=== PATIENT | female | born 1935 | race Caucasian/White ===

== ENCOUNTER → 2016-12-12 | Outpatient (REF) | payer MEDICARE ==
[~2016-12-12] MED LIST: /PRAV20TA PO; ASPI81TA31 PO; AUGM500T34 PO; CELE10TA PO; FISH1000 PO; HCTZ PO; LOSARTAN PO; OYST500T PO; SENN8.6T7 PO; SLOWTAB PO; VITAMIN B COMPLE1 PO; VITAMIN D50000 UNT PO; XANA0.25 PO; XANA0.5T PO
[2016-12-12 17:10] LABS: ALBUMIN 3.6 GM/DL (3.2-5.2); ALBUMIN/GLOBULIN RATIO 1.06 (1.00-1.93); ALKALINE PHOSPHATASE 89 U/L (45-117); ALT/SGPT 23 U/L (12-78); ANION GAP 8 MEQ/L (8-16); AST/SGOT 12 U/L (15-37); BILIRUBIN,TOTAL 0.4 MG/DL (0.2-1.0); BLOOD UREA NITROGEN 13 MG/DL (7-18); CARBON DIOXIDE LEVEL 34 MEQ/L (21-32); CHLORIDE LEVEL 100 MEQ/L (98-107); CHOLESTEROL LEVEL 184 MG/DL (<200); CREATININE FOR GFR 0.77 MG/DL (0.55-1.02); GLOMERULAR FILTRATION RATE > 60.0 (>32); GLUCOSE, FASTING 92 MG/DL (83-110); POTASSIUM SERUM 3.3 MEQ/L (3.5-5.1); SODIUM LEVEL 142 MEQ/L (136-145); TRIGLYCERIDES LEVEL 223 MG/DL (<150)
== END ==
LOC: M SFHCPLAZ 13:59
PROVIDERS: ATTEND Nurse Practitioner Adult Health
DX: I10 Essential (primary) hypertension (principal); E78.00 Pure hypercholesterolemia, unspecified; E55.9 Vitamin D deficiency, unspecified

== ENCOUNTER → 2017-01-15 | Outpatient (CLI) | payer MEDICARE ==
--- NOTE | 2017-01-17 08:03 | RADONC ---
RADIATION ONCOLOGY FOLLOWUP NOTE DATE: 01/15/2017 CHART NUMBER: [id number] DIAGNOSIS: Right breast cancer. STAGE: I A, [id number] ECOG PERFORMANCE STATUS: 0 FOLLOWUP NOTE: Ms. 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 The patient presents today reporting that she is doing quite well with no complaints at this time related to her radiation therapy or disease. She has no breast or bone pain. REVIEW OF SYSTEMS: The patient's review of systems is noncontributory. Denies nausea, vomiting, fevers, chills, night sweats, diplopia, headaches, anxiety or depression, anorexia, weight loss, visual disturbances, chest pain, urinary or bowel difficulties, bone pain, or neurological problems. PHYSICAL EXAMINATION: The patient is a well-developed, well-nourished, 81-year-old female, in no acute distress. HEENT exam is normocephalic, atraumatic. Extraocular movements are intact. There is no palpable cervical, supraclavicular, infraclavicular, axillary, or inguinal lymphadenopathy present. Lungs are clear to auscultation and percussion. Heart has a regular rate and rhythm. Abdomen is benign with no hepatosplenomegaly, masses, or tenderness. Breast examination reveals no masses or discharge bilaterally. Skeletal examination reveals no tenderness to pressure or percussion of the bony skeleton. Extremities reveal no clubbing, cyanosis, or edema. Neurologic exam is grossly intact, as is the remainder of the physical examination. ASSESSMENT: The patient is clinically ALEXANDER at this time and will be seen by us again in 6 months for further followup. She will also continue to be followed by her other physicians as well. cc: MD Compa Lee Jr, MD Jann Dominguez MD
== END ==
LOC: M ONCR 13:21
PROVIDERS: ATTEND Radiology Radiation Oncology
DX: C50.511 Malignant neoplasm of lower-outer quadrant of right female breast (principal)

== ENCOUNTER 2017-03-01 17:27 | Emergency (ER) | payer MEDICARE ==
[~2017-03-01] VITALS: Ht 162.6 cm; Wt 97.1 kg
[2017-03-01 19:14] VITALS: BP 157/66
--- NOTE | 2017-03-02 08:16 | REP ---
LEFT FEMUR: 03/01/2017. Comparison: left hip 04/15/2011. Findings: Two views of the femur in conjunction with the hip series this same date show no fracture of the shaft of the femur. There are degenerative changes at the knee with narrowing of the patellofemoral joint. No abnormal soft-tissue calcification. Impression: 1. Left knee arthritis particularly at the patellofemoral joint but no visible fracture of the portion of femur included on this study. Signed by Yovani Virk MD 03/02/2017 08:47 A
--- NOTE | 2017-03-02 08:30 | REP ---
AP PELVIS AND LEFT HIP: 03/01/2017. Clinical history: Trauma. Findings: No prior pertinent study. The three view show pelvic ring intact. The SI joints, sacral ala and foramina were unremarkable. Iliac wings, acetabuli and ischia intact. Symphysis pubis normal. The hips were grossly symmetric and unremarkable. There are degenerative disc and facet changes in the lower lumbar spine with some scoliosis. The two dedicated views show no hip joint space narrowing. There is a tiny rim osteophyte in the femoral head and at the acetabular roof. No evidence of AVN, fracture or destructive lesion. No abnormal calcifications. Impression: 1. Minimal left hip degenerative change without fracture of left hip or pelvis. Signed by Yovani Virk MD 03/02/2017 08:49 A
== END 2017-03-01 19:17 | disposition home or self-care (01) ==
LOC: M ED 18:27
DX: S70.02XA Contusion of left hip, initial encounter (principal); W18.30XA Fall on same level, unspecified, initial encounter; Y92.018 Other place in single-family (private) house as the place of occurrence of the external cause; Y93.89 Activity, other specified; Y99.8 Other external cause status; I10 Essential (primary) hypertension; E78.00 Pure hypercholesterolemia, unspecified; F41.9 Anxiety disorder, unspecified; F33.9 Major depressive disorder, recurrent, unspecified; Z85.3 Personal history of malignant neoplasm of breast; Z79.899 Other long term (current) drug therapy; Z79.82 Long term (current) use of aspirin; Z87.891 Personal history of nicotine dependence

== ENCOUNTER → 2017-03-17 | Outpatient (CLI) | payer MEDICARE ==
--- NOTE | 2017-03-17 13:06 | REP ---
PARTIAL LEFT KNEE, TWO VIEWS: HISTORY: Pain. There is no acute fracture or dislocation. There is narrowing of the joint spaces. Osteophytes are present on the femur, tibia and patella. A small suprapatellar joint effusion is present. IMPRESSION: Degenerative change as described above. Signed by Calixto Grossman MD 03/17/2017 01:30 P
--- NOTE | 2017-03-17 13:07 | REP ---
LEFT FEMUR, FOUR VIEWS: HISTORY: Pain. There is no acute fracture or dislocation. There is narrowing of the hip and knee joint spaces. Osteophytes are present at the knee joint. IMPRESSION: Degenerative change as described above. Signed by Calixto Grossman MD 03/17/2017 01:30 P
--- NOTE | 2017-03-17 13:08 | REP ---
LEFT HIP, TWO VIEWS: There is no acute fracture or dislocation. There is narrowing of the joint space. There is sclerosis of the acetabulum. IMPRESSION: Degenerative change as described above. Signed by Calixto Grossman MD 03/17/2017 01:30 P
== END ==
LOC: M SMT 11:54
PROVIDERS: ATTEND Nurse Practitioner Adult Health
DX: M16.12 Unilateral primary osteoarthritis, left hip (principal); M17.12 Unilateral primary osteoarthritis, left knee; M25.462 Effusion, left knee

== ENCOUNTER → 2017-04-18 | Outpatient (CLI) | payer MEDICARE | LOC: M LAB 13:25 | PROVIDERS: ATTEND Psychiatry & Neurology Psychiatry | DX: Z79.899 Other long term (current) drug therapy (principal) ==

== ENCOUNTER 2017-04-22 11:39 | Outpatient (RCR) | payer MEDICARE | END 2017-04-23 | LOC: M PT 11:39 | PROVIDERS: ATTEND Orthopaedic Surgery | DX: Z51.89 Encounter for other specified aftercare (principal); M70.70 Other bursitis of hip, unspecified hip; M12.9 Arthropathy, unspecified | CPT/HCPCS: 97035; 97110; 97140; 97163; G8978; G8979 ==

== ENCOUNTER 2017-05-01 13:34 | Outpatient (RCR) | payer MEDICARE | END 2017-05-23 | disposition home or self-care (01) | LOC: M PT 13:34 | PROVIDERS: ATTEND Orthopaedic Surgery | DX: Z51.89 Encounter for other specified aftercare (principal); M17.10 Unilateral primary osteoarthritis, unspecified knee ==

== ENCOUNTER → 2017-06-12 | Outpatient (REF) | payer MEDICARE ==
[2017-06-12 18:08] LABS: VITAMIN B12 LEVEL 304 PG/ML (247-911)
[2017-06-12 18:20] LABS: ALBUMIN 3.9 GM/DL (3.2-5.2); ALKALINE PHOSPHATASE 87 U/L (45-117); ALT/SGPT 22 U/L (12-78); ANION GAP 8 MEQ/L (8-16); AST/SGOT 17 U/L (15-37); BILIRUBIN,TOTAL 0.5 MG/DL (0.2-1.0); BLOOD UREA NITROGEN 20 MG/DL (7-18); CALCIUM LEVEL 9.2 MG/DL (8.8-10.2); CARBON DIOXIDE LEVEL 32 MEQ/L (21-32); CHLORIDE LEVEL 96 MEQ/L (98-107); CREATININE FOR GFR 0.78 MG/DL (0.55-1.02); GLOMERULAR FILTRATION RATE > 60.0 (>32); GLUCOSE, FASTING 99 MG/DL (83-110); SODIUM LEVEL 136 MEQ/L (136-145); TOTAL PROTEIN 6.9 GM/DL (6.4-8.2)
== END ==
LOC: M SFHCPLAZ 13:50
PROVIDERS: ATTEND Nurse Practitioner Adult Health
DX: Z00.00 Encounter for general adult medical examination without abnormal findings (principal); E55.9 Vitamin D deficiency, unspecified

== ENCOUNTER → 2017-07-23 | Outpatient (CLI) | payer MEDICARE ==
--- NOTE | 2017-07-24 09:53 | RADONC ---
RADIATION ONCOLOGY FOLLOWUP NOTE DATE: 07/23/2017 CHART NUMBER: [id number] DIAGNOSIS: Right breast cancer STAGE: I A, [id number]. ECOG PERFORMANCE STATUS: 0. FOLLOWUP NOTE: Ms. 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 The patient presents today reporting that she is doing quite well with no complaints at this time related to her radiation therapy or disease. She has no breast or bone pain. REVIEW OF SYSTEMS: The patient's review of systems is noncontributory. Denies nausea, vomiting, fevers, chills, night sweats, diplopia, headaches, anxiety or depression, anorexia, weight loss, visual disturbances, chest pain, urinary or bowel difficulties, bone pain, or neurological problems. PHYSICAL EXAMINATION: The patient is a well-developed, well-nourished, 81-year-old female in no acute distress. HEENT exam is normocephalic, atraumatic. Extraocular movements are intact. There is no palpable cervical, supraclavicular, infraclavicular, axillary, or inguinal lymphadenopathy present. Lungs are clear to auscultation and percussion. Heart has a regular rate and rhythm. Abdomen is benign with no hepatosplenomegaly, masses, or tenderness. Breast examination reveals no masses or discharge bilaterally. Skeletal examination reveals no tenderness to pressure or percussion of the bony skeleton. Extremities reveal no clubbing, cyanosis, or edema. Neurologic exam is grossly intact, as is the remainder of the physical examination. ASSESSMENT: The patient is clinically ALEXANDER at this time and will be seen by me again in 1 year for further followup. She will also continue to be followed by her other physicians as well. cc: Serena Bernardo MD, JAH Guzman Jr, MD Frank Rhode, MD MTDD
== END ==
LOC: M ONCR 13:23
PROVIDERS: ATTEND Radiology Radiation Oncology
DX: C50.511 Malignant neoplasm of lower-outer quadrant of right female breast (principal)

== ENCOUNTER → 2018-03-11 | Outpatient (REF) | payer MEDICARE ==
[2018-03-11 16:00] LABS: ALBUMIN 3.7 GM/DL (3.2-5.2); ALBUMIN/GLOBULIN RATIO 1.09 (1.00-1.93); ALKALINE PHOSPHATASE 68 U/L (45-117); ALT/SGPT 17 U/L (12-78); ANION GAP 3 MEQ/L (8-16); AST/SGOT 13 U/L (7-37); BILIRUBIN,TOTAL 0.3 MG/DL (0.2-1.0); BLOOD UREA NITROGEN 18 MG/DL (7-18); CALCIUM LEVEL 8.6 MG/DL (8.8-10.2); CARBON DIOXIDE LEVEL 33 MEQ/L (21-32); CHLORIDE LEVEL 102 MEQ/L (98-107); CHOLESTEROL LEVEL 200 MG/DL (<200); CHOLESTEROL RISK RATIO 4.444 (<5); CREATININE FOR GFR 0.75 MG/DL (0.55-1.30); GLOMERULAR FILTRATION RATE > 60.0 (>32); GLUCOSE, FASTING 88 MG/DL (70-100); HDL CHOLESTEROL 45 MG/DL (>40); LDL CHOLESTEROL 128.6 MG/DL (<100); NON-HDL-C 155 MG/DL; POTASSIUM SERUM 3.8 MEQ/L (3.5-5.1); SODIUM LEVEL 138 MEQ/L (136-145); TOTAL PROTEIN 7.1 GM/DL (6.4-8.2); TRIGLYCERIDES LEVEL 132 MG/DL (<150)
[2018-03-11 16:29] LABS: ESTIMATED AVERAGE GLUCOSE 103 MG/DL (60-110); HEMOGLOBIN A1c 5.2 %
[2018-03-13 09:50] LABS: TOTAL 25(OH) VITAMIN D 55.4 NG/ML (30.0-100.0)
[2018-03-13 09:51] LABS: VITAMIN B12 LEVEL 294 PG/ML (247-911)
== END ==
LOC: M SFHCPLAZ 13:55
DX: Z00.00 Encounter for general adult medical examination without abnormal findings (principal); E87.6 Hypokalemia; E78.2 Mixed hyperlipidemia; E55.9 Vitamin D deficiency, unspecified; R73.01 Impaired fasting glucose; R53.83 Other fatigue; Z79.899 Other long term (current) drug therapy
CPT/HCPCS: 82607

== ENCOUNTER → 2018-04-03 | Outpatient (CLI) | payer MEDICARE ==
[2018-04-03 11:58] LABS: CHOLESTEROL LEVEL 164 MG/DL (<200); CHOLESTEROL RISK RATIO 3.489 (<5); GLUCOSE,RANDOM 87 MG/DL (LESS THAN 200); HDL CHOLESTEROL 47 MG/DL (>40); LDL CHOLESTEROL 95.6 MG/DL (<100); NON-HDL-C 117 MG/DL; TRIGLYCERIDES LEVEL 107 MG/DL (<150)
[2018-04-03 12:55] LABS: ESTIMATED AVERAGE GLUCOSE 94 MG/DL (60-110); HEMOGLOBIN A1c 4.9 %
== END ==
LOC: M LRY 09:49
DX: Z51.81 Encounter for therapeutic drug level monitoring (principal); Z79.899 Other long term (current) drug therapy
CPT/HCPCS: 82947

== ENCOUNTER → 2018-12-07 | Outpatient (CLI) | payer MEDICARE ==
[~2018-12-07] MED LIST changes: +ASPI81CH32 PO; +CHLO125TA PO; +CITA-229 PO; +FISH100049 PO; +FOSA70TA PO; +LETR2.5T2 PO; +MAGN64TASA PO; +OCUVCAP2 PO; +OLAN5ZYD PO; +OSTETAB4 PO; +OYSTTAB3 PO; +POTA1TAB23 PO; +PRAV1TAB39 PO; +VITATAB11 PO; +[UNRECOGNIZED DRUG - CODE] PO
--- NOTE | 2018-12-07 17:03 | REP ---
Whole body radionuclide bone scan: History: Breast carcinoma. Hip pain. Bilateral knee pain. No comparison bone scan. Technique: 21.1 mCi technetium 99m MDP is injected and standard whole body bone scan imaging was acquired. Scintigraphic findings: There is a normal distribution of skeletal tracer with uptake in kidneys bilaterally and in the urinary bladder. There is arthritic uptake in both knees and in both shoulders. Degenerative disc uptake is seen in the mid and lower lumbar spine. There is no evidence to suggest skeletal metastatic disease. Impression: Arthritic and degenerative disc pattern of increased uptake as above. No evidence to suggest skeletal metastasis Electronically Signed by Shaq Zamorano MD 12/07/2018 08:24 P
--- NOTE | 2018-12-08 16:49 | MEDONCTEEN ---
Date/Time of Encounter Date of Encounter: Dec 08, 2018 Time of Encounter: 16:48 Telephone Encounter Bone scan showed no evidence of bone metastases. Results discussed with patient. VICK FRAIRE MD Dec 08, 2018 16:49
== END ==
LOC: M RAD 10:20
PROVIDERS: ATTEND Internal Medicine Medical Oncology
DX: M25.551 Pain in right hip (principal); M25.552 Pain in left hip; Z85.3 Personal history of malignant neoplasm of breast; M17.0 Bilateral primary osteoarthritis of knee; M19.011 Primary osteoarthritis, right shoulder; M19.012 Primary osteoarthritis, left shoulder
CPT/HCPCS: 78306; A9503

== ENCOUNTER → 2019-03-22 | Outpatient (CLI) | payer MEDICARE ==
[~2019-03-22] MED LIST changes: -/PRAV20TA PO; -ASPI81CH32 PO; +ASPI81CH33 PO; -CITA-229 PO; +CITA10TA6 PO
[2019-03-22 17:08] LABS: CHOLESTEROL RISK RATIO 4.061 (<5)
[2019-03-22 17:21] LABS: HEMOGLOBIN A1c 5.3 %
== END ==
LOC: M WUC 11:25
PROVIDERS: ATTEND Psychiatry & Neurology Psychiatry
DX: Z79.899 Other long term (current) drug therapy (principal)

== ENCOUNTER → 2019-03-23 | Outpatient (REF) | payer MEDICARE ==
[2019-03-23 15:54] LABS: HEMATOCRIT 42.4 % (36.0-47.0); HEMOGLOBIN 13.4 g/dl (12.0-15.5); MEAN CORPUSCULAR HEMOGLOBIN 28.9 pg (27.0-33.0); MEAN CORPUSCULAR HGB CONC 31.6 g/dl (32.0-36.5); MEAN CORPUSCULAR VOLUME 91.4 fl (80.0-96.0); PLATELET COUNT, AUTOMATED 264 10^3/uL (150-450); RED BLOOD COUNT 4.64 10^6/uL (4.00-5.40); WHITE BLOOD COUNT 7.6 10^3/uL (4.0-10.0)
[2019-03-23 16:00] LABS: ALBUMIN 3.6 GM/DL (3.2-5.2); ALT/SGPT 20 U/L (12-78); BILIRUBIN,TOTAL 0.5 MG/DL (0.2-1.0); BLOOD UREA NITROGEN 18 MG/DL (7-18); CALCIUM LEVEL 8.4 MG/DL (8.8-10.2); CARBON DIOXIDE LEVEL 33 MEQ/L (21-32); CHLORIDE LEVEL 102 MEQ/L (98-107); CHOLESTEROL LEVEL 204 MG/DL (<200); CHOLESTEROL RISK RATIO 4.163 (<5); CREATININE FOR GFR 0.82 MG/DL (0.55-1.30); GLOMERULAR FILTRATION RATE > 60.0 (>32); GLUCOSE, FASTING 94 MG/DL (70-100); HDL CHOLESTEROL 49 MG/DL (>40); LDL CHOLESTEROL 121 MG/DL (<100); NON-HDL-C 155 MG/DL; POTASSIUM SERUM 3.6 MEQ/L (3.5-5.1); SODIUM LEVEL 140 MEQ/L (136-145); TOTAL PROTEIN 7.4 GM/DL (6.4-8.2); TRIGLYCERIDES LEVEL 169 MG/DL (<150)
[2019-03-23 16:07] LABS: TOTAL 25(OH) VITAMIN D 40.1 NG/ML (30.0-100.0)
[2019-03-23 18:04] LABS: HEMOGLOBIN A1c 5.2 %
== END ==
LOC: M SFHCPLAZ 13:54
PROVIDERS: ATTEND Nurse Practitioner Adult Health
DX: E78.2 Mixed hyperlipidemia (principal); E87.6 Hypokalemia; E55.9 Vitamin D deficiency, unspecified; R73.01 Impaired fasting glucose
CPT/HCPCS: 36415; 80053; 80061; 82306; 83036; 85027; G0463

== ENCOUNTER → 2019-06-29 | Outpatient (REF) | payer MEDICARE ==
[~2019-06-29] MED LIST changes: +OLAN2.5T25 PO
== END ==
LOC: M LAB REF 17:02
DX: N63.0 Unspecified lump in unspecified breast (principal)

== ENCOUNTER → 2019-08-31 | Outpatient (CLI) | payer MEDICARE ==
[~2019-08-31] MED LIST changes: +[UNRECOGNIZED DRUG - CODE] PO
[2019-08-31 18:08] LABS: CHOLESTEROL RISK RATIO 3.44 (<5)
[2019-08-31 18:16] LABS: HEMOGLOBIN A1c 5.5 %
== END ==
LOC: M LRY 11:23
PROVIDERS: ATTEND Psychiatry & Neurology Psychiatry
DX: Z51.81 Encounter for therapeutic drug level monitoring (principal); Z79.899 Other long term (current) drug therapy

== ENCOUNTER 2019-12-13 11:01 | Day surgery (SDC) | payer MEDICARE ==
[~2019-12-13] VITALS: Ht 157.5 cm; Wt 96.5 kg
[~2019-12-13 11:01] MED LIST changes: +LIDOCAINE 1% MDV 20ML VIAL SQ PRN; +LR 1,000 ML IV ONE; +ceFAZolin SOD 1 GM in D5W MINI-BAG PLUS 50 ML IV ONE
[2019-12-13] MEDS ORDERED: fentaNYL 100 MCG/2 ML INJECTION (J3010) As Ordered ONE (11:35)
[2019-12-13] MEDS ORDERED: ONDANSETRON 4MG/2ML VIAL (J2405) As Ordered ONE (11:36)
[2019-12-13] MEDS ORDERED: dexameTHASONE 4 MG/ML 1ML VIAL (J1100) As Ordered ONE (11:36)
[2019-12-13] MEDS ORDERED: propofoL 200 MG/20 ML VIAL As Ordered ONE (11:36)
[2019-12-13] MEDS ORDERED: MIDAZOLAM INJ 2 MG/2 ML VIAL (J2250) As Ordered ONE (11:36)
[2019-12-13] MEDS ORDERED: LIDOCAINE 2% INJ 100 MG/5 ML SDV (FOR ANES.) As Ordered ONE (11:36)
[2019-12-13] MEDS ORDERED: LIDOCAINE 1% SDV INJ 30 ML VIAL As Ordered ONE (12:09)
[2019-12-13] MEDS ORDERED: BUPIVACAINE/EPIN 0.25% 30 ML VIAL As Ordered ONE (12:09)
[2019-12-13] MEDS ORDERED: ACETAMINOPHEN 1000MG 100ML IV BTL (OFIRMEV) (J0131 PER 10MG) As Ordered ONE (13:11)
[2019-12-13] MEDS ORDERED: KETOROLAC 60 MG/2 ML VIAL (J1885) As Ordered ONE (13:13)
[2019-12-13] MEDS ORDERED: fentaNYL 100 MCG/2 ML INJECTION (J3010) IV PRN (14:15)
[2019-12-13] MEDS ORDERED: ONDANSETRON 4MG/2ML VIAL (J2405) IV PRN (14:15)
[2019-12-13] MEDS ORDERED: METOCLOPRAMIDE INJ 10MG/2ML VIAL (J2765) IV PRN (14:15)
[2019-12-13] MEDS ORDERED: LR 1,000 ML IV SCH ×2 (14:15→15:16)
[2019-12-13] MEDS ORDERED: ACETAMINOPHEN TAB 650MG DOSE (2X325MG) PO PRN (15:16)
[2019-12-13] MEDS ORDERED: NORCO, ANEXSIA 5/325MG TABLET (HYDROcodone/ACETAMINOPHEN) PO PRN (15:16)
[2019-12-13 15:40] VITALS: BP 130/66
--- NOTE | 2019-12-14 06:50 | ECGEPIP ---
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
--- NOTE | 2019-12-21 09:06 | RO ---
DATE OF PROCEDURE: 12/13/2019 PREOPERATIVE DIAGNOSIS: Right breast mass with a history of right breast cancer. POSTOPERATIVE DIAGNOSIS: Right breast mass with a history of right breast cancer (concerning for right breast mass concerning for malignancy). PROCEDURE: Quadrantectomy of the right breast mass right breast (mass at 11 o'clock position). SURGEON: Dr. Compa Guzman CASTABLES WORKER: General endotracheal anesthesia. ESTIMATED BLOOD LOSS: Minimal. FLUIDS: Crystalloid. BRIEF PROCEDURE SUMMARY: The patient was brought to the operating room and was given general anesthesia. After adequate anesthesia and preoperative antibiotics were given, the patient was prepped and draped in the usual sterile fashion. Next, there was a palpable mass that was coming up to the skin level almost on the right breast and it was a palpable mass that was probably a centimeter and half in size and possibly even up to almost 2 centimeters. I used an elliptical incision around this in the supra-areolar position and taking the electrocautery to make some skin flaps superior and inferiorly. I still went through some pretty thick tissue, but I did take a nice portion of tissue out with surrounding fatty tissue, approximately an area of 4 cm around this area. In any case, eventually once this area was removed my concern was that there was still some thickened tissue both superiorly and inferior to this, almost at the dermal layer and just below this in the sub dermal layer. Inferior to the incision there was more of this tissue than superiorly and I had concerns that this may not just be simple radiation necrosis. Thus, I had them perform a frozen section on this and definitely atypical cells were appreciated and there was a concern of malignancy present. Given this finding, I made a wider elliptical incision around this area and removed the biopsy cavity with a combination of sharp and blunt dissection as well as electrocautery. Once this tissue was removed, this was a significant amount of breast tissue itself, and really was almost a quadrantectomy in this area. Given that she has a large breast, it was not a true mastectomy, but in any case this tissue was removed. The hemostasis was achieved with electrocautery. The dermis was brought together with #3-0 Vicryl and #4-0 Vicryl was used to approximate the skin. Steri-Strips and a dry sterile dressing was applied. The patient was awakened from anesthesia and brought to the recovery room awake, alert and hemodynamically stable. Sponge and needle counts were correct times two.
== END 2019-12-13 16:00 | disposition home or self-care (01) ==
LOC: M SDC 11:01
PROVIDERS: ATTEND Surgery
DX: C50.911 Malignant neoplasm of unspecified site of right female breast (principal); I10 Essential (primary) hypertension; E78.5 Hyperlipidemia, unspecified; F41.9 Anxiety disorder, unspecified; F32.9 Major depressive disorder, single episode, unspecified; Z79.82 Long term (current) use of aspirin; Z79.899 Other long term (current) drug therapy; Z91.041 Radiographic dye allergy status
CPT/HCPCS: 19301; 88305; 88331; 88341; 88342; 93005; J0131; J0690; J1100; J1885; J2250; J2405; J3010

== ENCOUNTER → 2020-08-07 | Outpatient (CLI) | payer MEDICARE ==
[~2020-08-07] MED LIST changes: -LIDOCAINE 1% MDV 20ML VIAL SQ PRN; -LR 1,000 ML IV ONE; -ceFAZolin SOD 1 GM in D5W MINI-BAG PLUS 50 ML IV ONE
[2020-08-07 17:47] LABS: ALBUMIN 4.1 GM/DL (3.2-5.2); ALT/SGPT 18 U/L (12-78); BILIRUBIN,TOTAL 0.4 MG/DL (0.2-1.0); BLOOD UREA NITROGEN 24 MG/DL (7-18); CALCIUM LEVEL 9.1 MG/DL (8.8-10.2); CARBON DIOXIDE LEVEL 38 MEQ/L (21-32); CHLORIDE LEVEL 103 MEQ/L (98-107); CHOLESTEROL LEVEL 191 MG/DL (<200); CHOLESTEROL RISK RATIO 4.152 (<5); GLOMERULAR FILTRATION RATE 56.1 (>32); GLUCOSE, FASTING 100 MG/DL (70-100); HDL CHOLESTEROL 46 MG/DL (>40); IRON (FE) 54 UG/DL (50-170); LDL CHOLESTEROL 110 MG/DL (<100); NON-HDL-C 145 MG/DL; PERCENT SATURATION 16.7 % (13.2-45.0); POTASSIUM SERUM 4.2 MEQ/L (3.5-5.1); SODIUM LEVEL 140 MEQ/L (136-145); TOTAL IRON BINDING CAPACITY 324 UG/DL (250-450); TOTAL PROTEIN 7.7 GM/DL (6.4-8.2); TRIGLYCERIDES LEVEL 175 MG/DL (<150)
[2020-08-07 17:53] LABS: TOTAL 25(OH) VITAMIN D 37.4 NG/ML (30.0-100.0)
[2020-08-07 18:06] LABS: HEMOGLOBIN A1c 5.2 %
== END ==
LOC: M PLALAB 14:16
PROVIDERS: ATTEND Nurse Practitioner Adult Health
DX: R73.01 Impaired fasting glucose (principal); E78.2 Mixed hyperlipidemia; E55.9 Vitamin D deficiency, unspecified; Z13.29 Encounter for screening for other suspected endocrine disorder; Z79.899 Other long term (current) drug therapy

== ENCOUNTER → 2020-08-09 | Outpatient (CLI) | payer MEDICARE ==
[2020-08-09 14:12] LABS: CHOLESTEROL RISK RATIO 3.42 (<5)
[2020-08-09 14:15] LABS: HEMOGLOBIN A1c 5.3 %
== END ==
LOC: M LAB 13:20
PROVIDERS: ATTEND Psychiatry & Neurology Psychiatry
DX: Z51.81 Encounter for therapeutic drug level monitoring (principal); Z79.899 Other long term (current) drug therapy

== ENCOUNTER 2020-11-08 14:12 | Emergency (ER) | payer MEDICARE ==
[~2020-11-08] VITALS: Ht 157.5 cm; Wt 93.4 kg
--- NOTE | 2020-11-08 16:08 | REP ---
INDICATION: bony tenderness, NKI, hx breast cancer COMPARISON: None. TECHNIQUE: There are two views. FINDINGS: There is acromioclavicular and glenohumeral osteoarthritis. There are no lytic, blastic or destructive changes. There is no fracture or dislocation. There are no calcifications or foreign bodies. IMPRESSION: Osteoarthritis. No lytic, blastic or destructive changes. <Electronically signed by Naun Hernandez > 11/08/20 [id number]
[2020-11-08] MEDS ORDERED: traMADol 50 MG TAB PO ONE (17:00)
[2020-11-08] MEDS ORDERED: ACETAMINOPHEN 650MG ER TAB (TYLENOL ARTHRITIS) PO STA (19:03)
--- NOTE | 2020-11-08 19:12 | REPVR ---
PROCEDURE INFORMATION: Exam: US Duplex Left Upper Extremity Veins, Limited Exam date and time: 11/08/2020 5:47 PM Age: 84 years old Clinical indication: Pain; Arm, upper; Left; Additional info: Swelling, tenderness TECHNIQUE: Imaging protocol: Real-time Duplex ultrasound of the Left Upper Extremity with 2-D rodriguez scale, color Doppler flow and spectral waveform analysis with image documentation. Limited exam focused on the left upper extremity veins. COMPARISON: US DUPLEX EXT UPPER VEINS UNILATE BILATERAL 11/12/2014 3:03 PM FINDINGS: Left deep veins: Unremarkable. Axillary and brachial veins are patent throughout without thrombus. Normal Doppler waveforms. Normal compressibility and/or augmentation response. Visualized internal jugular and subclavian veins are patent. Left superficial veins: Unremarkable. Visualized cephalic and basilic veins are patent without thrombus. Soft tissues: There is fluid in the sub acromial slope deltoid space which may be the result of changes of bursitis. IMPRESSION: Subacromial/subdeltoid fluid consistent with changes of bursitis. The study is negative for DVT left arm. Electronically signed by: Ten Garcia On 11/08/2020 19:12:37 PM
[2020-11-08 19:58] VITALS: BP 150/74
--- NOTE | 2020-11-09 13:23 | ECGEPIP ---
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
== END 2020-11-08 19:59 | disposition home or self-care (01) ==
LOC: M ED 14:12
DX: M19.012 Primary osteoarthritis, left shoulder (principal); M75.52 Bursitis of left shoulder; I10 Essential (primary) hypertension; E78.5 Hyperlipidemia, unspecified; Z79.899 Other long term (current) drug therapy; Z79.82 Long term (current) use of aspirin; Z91.041 Radiographic dye allergy status

== ENCOUNTER → 2021-02-13 | Outpatient (CLI) | payer MEDICARE ==
[~2021-02-13] MED LIST changes: +VITA50005 PO
--- NOTE | 2021-02-13 12:19 | REP ---
INDICATION: US GUIDED BX/RIGHT BREAST MASS/CK CLIP PLACEMENT. COMPARISON: Comparison mammography is from November 13, 2020. Comparison MRI study is dated January 02, 2021.. TECHNIQUE: Craniocaudal and mediolateral views of the right breast are obtained.. This mammogram was interpreted with the aid of an FDA-approved computer-aided detection system. FINDINGS: The recently noted large fluid containing retroareolar mass in the right breast is seen to be filled with air and fluid post aspiration and biopsy today. A marker clip is noted in good position along its lateral wall. IMPRESSION: Marker clip in good position along the lateral wall of the retroareolar fluid collection in the right breast which now contains an air-fluid level post aspiration. Findings consistent with hematoma seroma versus fat necrosis. <Electronically signed by Armando Zamorano > 02/13/21 [id number]
[2021-02-13 12:55] VITALS: BP 138/62
--- NOTE | 2021-02-13 18:11 | REP ---
INDICATION: US GUIDED BX RIGHT BREAST MASS/N63.10. COMPARISON: None. TECHNIQUE: The procedure was performed by Nakita Hamilton [facility], under the direct supervision of Dr. Zamorano. The risks and benefits of the procedure were explained to the patient and an informed consent was obtained both verbally and written. Directly prior to the start of the procedure a formal time-out was completed in the procedure room. FINDINGS: Using ultrasound guidance the right breast cystic mass was localized. The skin was prepped and draped in a sterile fashion. Five mL of buffered lidocaine was used as a local anesthetic. Using ultrasound guidance a coaxial needle was inserted and advanced into the right breast mass. Using just the coaxial needle approximately 40 mL cystic fluid was aspirated. The coaxial needle was readjusted and a 14 gauge [employer] Marquee biopsy system was inserted. 3 core biopsy specimens were obtained and sent to pathology for further analysis. A marker clip was placed at the biopsy site. The patient tolerated the procedure well and there were no immediate complications. After the appropriate amount of monitored convalescence the patient was discharged from the department. IMPRESSION: 1. Ultrasound-guided right breast aspiration and cystic wall biopsy with micro clip placement. <Electronically signed by Nakita Hamilton > 02/13/21 [id number] <Electronically signed by Armando Zamorano > 02/13/21 [id number]
== END ==
LOC: M WHCPRO 09:43
PROVIDERS: ATTEND Surgery
DX: D24.1 Benign neoplasm of right breast (principal); N64.1 Fat necrosis of breast; D48.61 Neoplasm of uncertain behavior of right breast

== ENCOUNTER → 2021-07-12 | Outpatient (CLI) | payer MEDICARE ==
[~2021-07-12] MED LIST changes: +ERGO500029 PO; +PRAV20TA2 PO; -VITA50005 PO
[2021-07-12 13:01] LABS: CHOLESTEROL RISK RATIO 3.875 (<5)
[2021-07-12 13:04] LABS: HEMOGLOBIN A1c 5.3 %
== END ==
LOC: M LAB 11:39
PROVIDERS: ATTEND Psychiatry & Neurology Psychiatry
DX: Z79.899 Other long term (current) drug therapy (principal)

== ENCOUNTER → 2021-12-17 | Outpatient (CLI) | payer MEDICARE | LOC: M WHC 13:30 | PROVIDERS: ATTEND Specialist | DX: M85.851 Other specified disorders of bone density and structure, right thigh (principal); M85.852 Other specified disorders of bone density and structure, left thigh ==

== ENCOUNTER → 2022-03-07 | Outpatient (CLI) | payer MEDICARE | LOC: M WHC 15:43 | PROVIDERS: ATTEND Specialist | DX: Z12.31 Encounter for screening mammogram for malignant neoplasm of breast (principal); Z91.041 Radiographic dye allergy status ==

== ENCOUNTER 2022-04-16 11:16 | Inpatient (IN) | payer MEDICARE ==
[~2022-04-16] VITALS: Ht 165.1 cm; Wt 92.3 kg
[2022-04-16] MEDS: NS 1,000 ML IV SCH ×2 (11:30→22:09)
[2022-04-16 12:13] LABS: BASO % 0.3 % (0.0-1.0); EOS # 0.1 10^3/uL (0.0-0.5); EOS % 1.2 % (0.0-3.0); HEMATOCRIT 40.6 % (36.0-47.0); HEMOGLOBIN 13.1 g/dl (12.0-15.5); LYMPH % 12.9 % (24.0-44.0); MEAN CORPUSCULAR HEMOGLOBIN 28.9 pg (27.0-33.0); MEAN CORPUSCULAR HGB CONC 32.3 g/dl (32.0-36.5); MEAN CORPUSCULAR VOLUME 89.4 fl (80.0-96.0); MONO # 0.6 10^3/uL (0.0-0.8); MONO % 8.1 % (2.0-8.0); NEUTROPHILS # 5.7 10^3/uL (1.5-8.5); PLATELET COUNT, AUTOMATED 329 10^3/uL (150-450); RED BLOOD COUNT 4.54 10^6/uL (4.00-5.40); WHITE BLOOD COUNT 7.4 10^3/uL (4.0-10.0)
[2022-04-16 12:45] LABS: ALBUMIN 3.2 GM/DL (3.2-5.2); BILIRUBIN,DIRECT 0.3 MG/DL (0.0-0.2); BILIRUBIN,TOTAL 0.8 MG/DL (0.2-1.0); TOTAL PROTEIN 7.2 GM/DL (6.4-8.2)
[2022-04-16] MEDS ORDERED: KCL 10MEQ/100ML SWI (KRUN) 10 MEQ in IV 1 EA IV ONE (12:55)
[2022-04-16] MEDS ORDERED: POTASSIUM CHLORIDE 10MEQ SR TABLET PO ONE ×2 (12:55→19:40)
[2022-04-16] MEDS ORDERED: POTA1TAB14 PO (14:08)
[2022-04-16] MEDS ORDERED: LETR2.5T2 PO (14:08)
[2022-04-16] MEDS ORDERED: OLAN2.5T25 PO (14:08)
[2022-04-16] MEDS ORDERED: ALEN70TA82 PO (14:08)
[2022-04-16] MEDS ORDERED: CITA20TA7 PO (14:08)
[2022-04-16] MEDS ORDERED: ASPI81CH33 PO (14:08)
[2022-04-16] MEDS ORDERED: PRAV20TA2 PO (14:08)
[2022-04-16] MEDS ORDERED: CHLO25TA PO (14:08)
[2022-04-16] MEDS ORDERED: HOME MED LIST COMPLETE! XX SCH (14:10)
[2022-04-16 15:30] VITALS: BP 161/79
[2022-04-16 20:00] VITALS: BP 199/71
[2022-04-16 20:15] VITALS: BP 164/99
[2022-04-16] MEDS ORDERED: OLANZapine 2.5MG TABLET PO SCH (21:00)
[2022-04-16] MEDS ORDERED: ENOXAPARIN 40MG/0.4ML SYRINGE (J1650 PER 10MG) SC SCH (21:00)
[2022-04-16 23:10] LABS: BLOOD UREA NITROGEN 16 MG/DL (7-18); CALCIUM LEVEL 7.8 MG/DL (8.8-10.2); CARBON DIOXIDE LEVEL 23 MEQ/L (21-32); CHLORIDE LEVEL 109 MEQ/L (98-107); CREATININE FOR GFR 0.83 MG/DL (0.55-1.30); GLOMERULAR FILTRATION RATE > 60.0 (>32); GLUCOSE, FASTING 104 MG/DL (70-100); POTASSIUM SERUM 3.1 MEQ/L (3.5-5.1); SODIUM LEVEL 136 MEQ/L (136-145)
[2022-04-17] VITALS: BP 179/89
[2022-04-17 00:30] VITALS: BP 172/74
[2022-04-17] MEDS: ACETAMINOPHEN TAB 650MG DOSE (2X325MG) PO PRN ×2 (01:00→06:29)
[2022-04-17 02:00] VITALS: BP 165/77
[2022-04-17 04:00] VITALS: BP 155/71
[2022-04-17 05:55] LABS: BASO % 0.5 % (0.0-1.0); EOS # 0.1 10^3/uL (0.0-0.5); EOS % 1.1 % (0.0-3.0); HEMATOCRIT 38.1 % (36.0-47.0); HEMOGLOBIN 12.2 g/dl (12.0-15.5); LYMPH # 0.9 10^3/uL (1.5-5.0); LYMPH % 14.3 % (24.0-44.0); MEAN CORPUSCULAR VOLUME 90.5 fl (80.0-96.0); MONO # 0.5 10^3/uL (0.0-0.8); MONO % 7.2 % (2.0-8.0); NEUTROPHILS # 4.8 10^3/uL (1.5-8.5); NEUTROPHILS % 76.4 % (36.0-66.0); PLATELET COUNT, AUTOMATED 312 10^3/uL (150-450); RED BLOOD COUNT 4.21 10^6/uL (4.00-5.40); WHITE BLOOD COUNT 6.2 10^3/uL (4.0-10.0)
[2022-04-17 06:31] LABS: ALBUMIN 2.9 GM/DL (3.2-5.2); ALT/SGPT 47 U/L (12-78); BILIRUBIN,TOTAL 0.8 MG/DL (0.2-1.0); BLOOD UREA NITROGEN 15 MG/DL (7-18); CARBON DIOXIDE LEVEL 28 MEQ/L (21-32); CHLORIDE LEVEL 109 MEQ/L (98-107); CREATININE FOR GFR 0.73 MG/DL (0.55-1.30); GLOMERULAR FILTRATION RATE > 60.0 (>32); GLUCOSE, FASTING 103 MG/DL (70-100); MAGNESIUM LEVEL 1.6 MG/DL (1.8-2.4); SODIUM LEVEL 138 MEQ/L (136-145); TOTAL PROTEIN 6.6 GM/DL (6.4-8.2)
[2022-04-17] MEDS ORDERED: LOPERAMIDE 2 MG CAPLET PO PRN (07:00)
[2022-04-17 08:00] VITALS: BP 128/68
[2022-04-17] MEDS: MAG SULF 1GM/100ML (MAG RUN) 1 GM in IV 1 EA IV SCH ×2 (08:46→10:00)
[2022-04-17] MEDS ORDERED: diphenhydrAMINE CREAM 30GM TOP PRN (08:55)
[2022-04-17] MEDS ORDERED: CitaloPRAM (CeleXA) 20 MG TAB PO SCH (09:00)
[2022-04-17] MEDS ORDERED: LETROZOLE 2.5 MG TAB PO SCH (09:00)
[2022-04-17] MEDS ORDERED: GABAPENTIN 100 MG CAP PO SCH (09:00)
[2022-04-17] MEDS ORDERED: ASPIRIN 81 MG CHEW TABLET PO SCH (09:00)
[2022-04-17] MEDS ORDERED: PRAVASTATIN 20 MG TAB PO SCH (09:00)
[2022-04-17] MEDS ORDERED: GABA-1171 PO (10:08)
[2022-04-17] MEDS ORDERED: K-TA10TA2 PO (10:08)
[2022-04-17] MEDS ORDERED: MAGNESIUM OXIDE 400MG TAB (MAG-OX) PO ONE (11:20)
== END 2022-04-17 11:26 | disposition home health service (06) | DRG 392 ==
LOC: M ED 11:16 → EDBD 11:16 → M ED INP 13:56 → ENRESERV 14:55 → M PCU 15:30
PROVIDERS: ADMIT Internal Medicine; ATTEND Internal Medicine
DX: R19.7 Diarrhea, unspecified (principal); I10 Essential (primary) hypertension; E78.5 Hyperlipidemia, unspecified; I25.10 Atherosclerotic heart disease of native coronary artery without angina pectoris; N39.3 Stress incontinence (female) (male); R42 Dizziness and giddiness; F41.9 Anxiety disorder, unspecified; F25.9 Schizoaffective disorder, unspecified; H35.30 Unspecified macular degeneration; M85.88 Other specified disorders of bone density and structure, other site; Z20.822 Contact with and (suspected) exposure to COVID-19; Z90.49 Acquired absence of other specified parts of digestive tract; Z90.79 Acquired absence of other genital organ(s); Z85.3 Personal history of malignant neoplasm of breast; Z92.3 Personal history of irradiation; E87.6 Hypokalemia; Z79.82 Long term (current) use of aspirin; Z79.899 Other long term (current) drug therapy; Z91.041 Radiographic dye allergy status; B34.9 Viral infection, unspecified; J06.9 Acute upper respiratory infection, unspecified

== ENCOUNTER → 2022-06-28 | Outpatient (CLI) | payer MEDICARE ==
[~2022-06-28] MED LIST changes: +ALEN70TA82 PO; +CHLO25TA PO; +CITA20TA7 PO; +GABA-1171 PO; +K-TA10TA2 PO; +POTA1TAB14 PO; +POTA1TAB23
[2022-06-28 15:08] LABS: CHOLESTEROL RISK RATIO 3.386 (<5)
[2022-06-28 15:23] LABS: HEMOGLOBIN A1c 5.2 %
== END ==
LOC: M LAB 12:39
PROVIDERS: ATTEND Psychiatry & Neurology Psychiatry
DX: Z79.899 Other long term (current) drug therapy (principal)

== ENCOUNTER → 2022-07-08 | Outpatient (CLI) | payer MEDICARE | LOC: M PLAIMG 06-25 12:31 | PROVIDERS: ATTEND Physician Assistant | DX: M51.36 Other intervertebral disc degeneration, lumbar region (principal); M51.26 Other intervertebral disc displacement, lumbar region; M48.061 Spinal stenosis, lumbar region without neurogenic claudication; M99.63 Osseous and subluxation stenosis of intervertebral foramina of lumbar region ==

== ENCOUNTER → 2023-03-13 | Outpatient (CLI) | payer MEDICARE ==
[~2023-03-13] MED LIST changes: +ALEN70TA87 PO; -FOSA70TA PO
== END ==
LOC: M WHC 12:58
PROVIDERS: ATTEND Specialist
DX: Z12.31 Encounter for screening mammogram for malignant neoplasm of breast (principal); Z85.3 Personal history of malignant neoplasm of breast

== ENCOUNTER → 2023-10-03 | Outpatient (CLI) | payer MEDICARE ==
[~2023-10-03] MED LIST changes: -K-TA10TA2 PO; +POTA-165 PO; +POTA-298 PO; -POTA1TAB14 PO
[2023-10-03 13:56] LABS: CHOLESTEROL RISK RATIO 3.43 (<5); HDL CHOLESTEROL 41.6 MG/DL (>40); LDL CHOLESTEROL 80.2 MG/DL (<100); NON-HDL-C 101.4 MG/DL
== END ==
LOC: M LAB 12:42
PROVIDERS: ATTEND Psychiatry & Neurology Psychiatry
DX: Z79.899 Other long term (current) drug therapy (principal)

== ENCOUNTER → 2023-10-03 | Outpatient (CLI) | payer MEDICARE ==
[2023-10-03 14:01] LABS: ALBUMIN 3.4 G/DL (3.2-5.2); ALKALINE PHOSPHATASE 58 U/L (46-116); ALT/SGPT < 9 U/L (7.0-40); AST/SGOT 14 U/L (<34); BILIRUBIN,TOTAL 0.5 MG/DL (0.3-1.2); BLOOD UREA NITROGEN 14 MG/DL (9-23); CALCIUM LEVEL 8.1 MG/DL (8.3-10.6); CARBON DIOXIDE LEVEL 30 MMOL/L (20-31); CHLORIDE LEVEL 102 MMOL/L (98-107); CHOLESTEROL LEVEL 139 MG/DL (<200); CHOLESTEROL RISK RATIO 3.25 (<5); CREATININE FOR GFR 0.74 MG/DL (0.55-1.30); GLOMERULAR FILTRATION RATE > 60.0 (>32); GLUCOSE, FASTING 90 MG/DL (74-106); HDL CHOLESTEROL 42.7 MG/DL (>40); LDL CHOLESTEROL 75.3 MG/DL (<100); NON-HDL-C 96.3 MG/DL; POTASSIUM SERUM 3.9 MMOL/L (3.5-5.1); SODIUM LEVEL 140 MMOL/L (136-145); TOTAL 25(OH) VITAMIN D 60.4 NG/ML (20.0-100.0); TOTAL PROTEIN 6.9 G/DL (5.7-8.2); TRIGLYCERIDES LEVEL 105 MG/DL (<150)
== END ==
LOC: M LAB 12:45
PROVIDERS: ATTEND Nurse Practitioner Adult Health
DX: I10 Essential (primary) hypertension (principal)

== ENCOUNTER → 2024-04-13 | Outpatient (CLI) | payer MEDICARE | LOC: M WHC 13:02 | PROVIDERS: ATTEND Nurse Practitioner Adult Health | DX: Z12.31 Encounter for screening mammogram for malignant neoplasm of breast (principal) ==

== ENCOUNTER → 2024-10-07 | Outpatient (CLI) | payer MEDICARE ==
[~2024-10-07] MED LIST changes: -OLAN2.5T25 PO; +OLAN2.5T53 PO
[2024-10-07 13:07] LABS: CHOLESTEROL RISK RATIO 3.56 (<5); HDL CHOLESTEROL 43.2 MG/DL (>40); NON-HDL-C 110.8 MG/DL
== END ==
LOC: M LAB 11:56
PROVIDERS: ATTEND Psychiatry & Neurology Psychiatry
DX: Z79.899 Other long term (current) drug therapy (principal)